=== PATIENT | female | born 1965 | race Caucasian/White ===

== ENCOUNTER 2018-04-19 15:32 | Emergency (ER) | payer SELFPAY ==
[~2018-04-19] VITALS: Ht 167.6 cm; Wt 61.2 kg
[2018-04-19] MEDS ORDERED: IBUPROFEN 600 MG TABLET PO ONE ×2 (15:54→16:00)
[2018-04-19 15:57] VITALS: BP 128/74
== END 2018-04-19 16:22 | disposition home or self-care (01) ==
LOC: ER 15:41
DX: R53.83 Other fatigue (principal); R51 Headache; R11.2 Nausea with vomiting, unspecified; F17.200 Nicotine dependence, unspecified, uncomplicated
CPT/HCPCS: 99282; A4606; Z7610